=== PATIENT | female | born 1960 | race Caucasian/White ===

== ENCOUNTER 2017-04-07 10:27 | Day surgery (SDC) | payer OTHER ==
[2017-04-05 14:39] VITALS: BMI 34.9
[2017-04-07] MEDS ORDERED: PROPOFOL 20 ML ONE (11:24)
[2017-04-07 12:17] VITALS: TEMP 98.7
[2017-04-07 13:11] VITALS: BP 148/83; PULSE 59
== END 2017-04-07 13:11 | disposition home or self-care (01) ==
LOC: JASU-ENDO 10:27
PROVIDERS: ATTEND Internal Medicine Gastroenterology
PROC: 0DJ08ZZ Inspection of Upper Intestinal Tract, Via Natural or Artificial Opening Endoscopic (ICD-10-PCS; principal; 2017-04-07 11:00)
DX: D50.9 Iron deficiency anemia, unspecified (principal); K31.9 Disease of stomach and duodenum, unspecified; K44.9 Diaphragmatic hernia without obstruction or gangrene
CPT/HCPCS: 84703

== ENCOUNTER 2017-06-23 10:52 | Emergency (ER) | payer OTHER ==
[2017-06-23 11:00] VITALS: BP 158/101; PULSE 78; TEMP 98.9; BMI 32.3
--- NOTE | 2017-06-23 11:48 | PDOC ---
Attending Attestation - Resident Resident Name: Matt Suarez - ED Attending Attestation I have performed the following: I have examined & evaluated the patient, The case was reviewed & discussed with the resident, I agree w/resident's findings & plan, Exceptions are as noted - HPI HPI: 57 yo F PMH allergic reaction 2 years ago, HTN presents with rash. She states she has been evaluated by her cigar packer as well as an urgent care. She is currently on prednisone 30 mg, on a taper. She states she does not know of any new lotions, soaps, detergents. No recent med changes. She has been on Cozaar for her BP for years without any problems. She also notes that her upper lip is swollen on the left side. She has had recent throat irritation. - Physicial Exam PE: GENERAL: Awake, alert, and fully oriented, in no acute distress HEAD: No signs of trauma EYES: PERRLA, EOMI, sclera anicteric, conjunctiva clear ENT: Auricles normal inspection, hearing grossly normal, nares patent, oropharynx clear without exudates. Moist mucosa. +Slight edema of the upper lip , left side. No oral mucosal lesions. NECK: Normal ROM, supple, no lymphadenopathy, JVD, or masses LUNGS: Breath sounds equal, clear to auscultation bilaterally. No wheezes, and no crackles HEART: Regular rate and rhythm, normal S1 and S2, no murmurs, rubs or gallops ABDOMEN: Soft, nontender, normoactive bowel sounds. No guarding, no rebound. No masses EXTREMITIES: Normal range of motion, no edema. No clubbing or cyanosis. No cords , erythema, or tenderness NEUROLOGICAL: Cranial nerves II through XII grossly intact. Normal speech, normal gait SKIN: Warm, Dry, normal turgor. +Diffuse erythematous patches with excoriations , no edema. - Medical Decision Making Symptoms suspicious for urticaria vs angioedema. No oral mucosal lesions, making SJS unlikely (also patient is afebrile and well-appearing). Will treat with H2 nacho and additional steroids (she took prednisone 30 mg this morning) . Recommended benadryl at home, as her itching has not improved with xyzal and claritin. Will monitor in ED, [place] home with cigar packer f/u.
[2017-06-23] MEDS ORDERED: SODIUM CHLORIDE 1,000 ML IV STA (11:54)
[2017-06-23] MEDS ORDERED: FAMOTIDINE 20 MG/50 ML IVPB 50 ML IVPB ONE ×2 (11:54→12:04)
[2017-06-23] MEDS ORDERED: methylPREDNISolone NA SUCC 40 MG/1 ML VIAL ONE (12:05)
--- NOTE | 2017-06-23 12:18 | PDOC ---
History of Present Illness - General Chief Complaint: Allergic Reaction Stated Complaint: ALLERGIC REACTION, ITCHY RASH Time Seen by Provider: 06/23/17 11:05 History Source: Patient Exam Limitations: No Limitations - History of Present Illness Initial Comments: 06/23/17 11:37 The patient is a 57F with a PMH of HTN and hypothyroidism who presents to the ED with an allergic reaction. The patient states that 3-4 days ago she began itching at night and it has since progressed to hives. She saw her rotary furnace tender who thought it was secondary to a viral process that the patient had. She then went to an urgent care and they thought it was secondary to a food. She is currently prescribed claritin and 30mg of prednisone. The patient also endorses lip swelling and slight feeling in her throat. Past History - Past Medical History Allergies/Adverse Reactions: Allergies Allergy/AdvReac Type Severity Reaction Status Date / Time clarithromycin [From Biaxin] AdvReac severe Verified 06/23/17 10:54 abdominal pain erythromycin lactobionate AdvReac severe Verified 06/23/17 10:54 [From Erythrocin] abdominal pain diuretics AdvReac dizziness Uncoded 06/23/17 10:54 Home Medications: Ambulatory Orders Pantoprazole Sodium [Protonix] 40 mg PO HS #30 06/21/16 Desloratadine 5 mg PO DAILY 06/23/17 Levocetirizine Dihydrochloride 5 mg PO DAILY 06/23/17 Prednisone 10 mg PO TID 06/23/17 Prednisone [Deltasone -] 40 mg PO DAILY #10 tablet 06/23/17 Anemia: Yes (IRON DEFICIENCY ANEMIA) Asthma: No Cancer: No Cardiac Disorders: Yes (MVP) CVA: No COPD: No CHF: No Dementia: No Diabetes: No GI Disorders: Yes (GERD,IBS,COLON POLYPS,STOMACH ULCERS) Disorders: No HTN: Yes Hypercholesterolemia: No Liver Disease: No Seizures: No Thyroid Disease: Yes - Surgical History Abdominal Surgery: No Appendectomy: No Cardiac Surgery: No Cholecystectomy: No Lung Surgery: No Neurologic Surgery: No Orthopedic Surgery: No - Suicide/Smoking/Psychosocial Hx Smoking History: Never smoked Have you smoked in the past 12 months: No Number of Cigarettes Smoked Daily: 0 Hx Alcohol Use: No Drug/Substance Use Hx: No Substance Use Type: None Hx Substance Use Treatment: No Review of Systems - Review of Systems Able to Perform ROS?: Yes Is the patient limited German proficient: No Constitutional: No: Chills, Fever HEENTM: Yes: Mouth Swelling. No: Eye Pain, Throat Swelling Respiratory: No: Cough, Shortness of Breath Cardiac (ROS): No: Chest Pain, Palpitations ABD/GI: No: Nausea, Vomiting : No: Burning, Dysuria, Discharge Musculoskeletal: No: Back Pain, Muscle Weakness Integumentary: Yes: Other (Lip swelling). No: Sweating Neurological: No: Numbness, Tingling, Weakness *Physical Exam - Vital Signs Last Vital Signs Temp Pulse Resp BP Pulse Ox 98.9 F 78 18 158/101 97 06/23/17 10:52 06/23/17 10:52 06/23/17 10:52 06/23/17 10:52 06/23/17 10:52 - Physical Exam General Appearance: Yes: Nourished, Appropriately Dressed HEENT: positive: Normal Voice, Hearing Grossly Normal, Other (Mild L sided upper lip swelling). negative: Tonsillar Exudate, Tonsillar Erythema Respiratory/Chest: positive: Lungs Clear, Normal Breath Sounds. negative: Chest Tender, Respiratory Distress, Accessory Muscle Use, Labored Respiration, Stridor, Wheezing Cardiovascular: positive: Regular Rhythm, Regular Rate, S1, S2. negative: Diastolic Murmur, Systolic Murmur Gastrointestinal/Abdominal: positive: Flat, Soft. negative: Tender Musculoskeletal: negative: CVA Tenderness, CVA Tenderness (R), CVA Tenderness (L ) Extremity: positive: Normal Inspection, Normal Range of Motion. negative: Swelling, Calf Tenderness Integumentary: positive: Dry, Warm, Hives (on face, b/l thighs and chest) Neurologic: positive: Fully Oriented, Alert, Normal Mood/Affect Medical Decision Making - Medical Decision Making 06/23/17 13:25 The patient is a 57F who presents with an allergic reaction x 3 days. The patient states she had a similar presentation a few years ago. She has been given benadryl, pepcid, and steroids and states she is feeling better. She is aware that she needs to follow up with her rotary furnace tender in 2-3 days. Patient is ready for discharge. Patient's lips had decreased swelling from previous exam. *DC/Admit/Observation/Transfer Diagnosis at time of Disposition: Allergic reaction Qualifiers: Encounter type: initial encounter Qualified Code(s): T78.40XA - Allergy, unspecified, initial encounter - Discharge Dispostion Disposition: HOME Condition at time of disposition: Stable Admit: No - Prescriptions Prescriptions: Prednisone [Deltasone -] 40 mg PO DAILY #10 tablet - Referrals Referrals: Patrick Connolly MD [Primary Care Provider] - - Patient Instructions Printed Discharge Instructions: DI for Adverse Drug Reaction -- Allergic Additional Instructions: Please return to the ER if symptoms persist, worsen, or new symptoms arise. Please follow up with your allergy doctor within 2-3 days. Please return to the ER if you have lip, tongue, eye, or throat swelling or if you feel any difficulty breathing. Print Language: MACEDONIAN
[2017-06-24] MEDS ORDERED: methylPREDNISolone NA SUCC 125 MG/2 ML VIAL IVPB ONE (11:56)
== END 2017-06-23 13:50 | disposition home or self-care (01) ==
LOC: FER 10:52
PROC: 3E033GC Introduction of Other Therapeutic Substance into Peripheral Vein, Percutaneous Approach (ICD-10-PCS; principal; 2017-06-23)
PROC: 3E0337Z Introduction of Electrolytic and Water Balance Substance into Peripheral Vein, Percutaneous Approach (ICD-10-PCS; 2017-06-23)
DX: T78.40XA Allergy, unspecified, initial encounter (principal); I10 Essential (primary) hypertension; E07.9 Disorder of thyroid, unspecified; K21.9 Gastro-esophageal reflux disease without esophagitis; I34.1 Nonrheumatic mitral (valve) prolapse
CPT/HCPCS: 99283-25

== ENCOUNTER 2019-06-05 23:46 | Emergency (ER) | payer SELFPAY ==
[2019-06-05 23:57] VITALS: BP 144/81; PULSE 80; TEMP 98.8; BMI 25.8
[2019-06-06] MEDS ORDERED: predniSONE 20 MG TABLET (UD) PO ONE (00:07)
[2019-06-06] MEDS ORDERED: predniSONE 20 MG TABLET (UD) ONE (00:09)
--- NOTE | 2019-06-06 00:10 | PDOC ---
History of Present Illness - General Chief Complaint: Allergic Reaction Stated Complaint: ALLERGIC REACTION Time Seen by Provider: 06/06/19 00:05 History Source: Patient Exam Limitations: No Limitations - History of Present Illness Initial Comments: 06/06/19 00:07 This is a 89-year-old female who comes in complaining of an ALLERGIC reaction. Patient is complaining of itching and swelling of her hands or feet and her face. Patient had similar reaction recently and stopped taking the prednisone for yesterday. An patient that her symptoms return. Patient denies any shortness of breath, nausea, vomiting or diarrhea. Patient denies any fevers or chills Allergies: as per nursing notes Past Medical History: none Social history: Lives with family. No smoking. No alcohol. No illicit drugs. Surgical history: None General: No fevers or chills, no weakness, no weight loss HEENT: No change in vision. No sore throat,. No ear pain CardioVascular: no chest discomfort. No shortness of breath Respiratory:No cough, or wheezing. Gastrointestinal: no nausea, vomiting, diarrhea or constipation, No rectal bleeding Genitourinary: No dysuria, hematuria, or frequency Musculoskeletal: No joint or muscle pain or swelling Neurologic: No headache, vertigo, dizziness or loss of consciousness Psychiatric: nor depression Skin: Itching as per history of present illness Endocrine: no increased thirst or abnormal weight change Allergic: no skin or latex allergy All other systems reviewed and normal Exam: General: Well-nourished well-developed individual, no acute distress HEENT: Throat: Normal, tonsils normal, no erythema or exudate Neck: Supple, no meningeal signs, no lymphadenopathy Eyes::Pupils equal reactive and round, extraocular motion intact Chest: Nontender to palpation Cardiac: S1-S2 normal, regular rate and rhythm, no murmurs rubs or gallops Respiratory: Lungs clear to auscultation bilateral Abdomen: Soft, nondistended, normal bowel sounds, there is no tenderness on palpation diffusely Extremities: Warm, dry, no cyanosis, clubbing, or edema Skin: No rashes Neuro: Alert and oriented x3, CN II - XII intact, nonfocal exam with normal strength, normal sensation, normal reflexes, normal gait, Psych: Normal mood and affect Past History - Past Medical History Allergies/Adverse Reactions: Allergies Allergy/AdvReac Type Severity Reaction Status Date / Time clarithromycin [From Biaxin] AdvReac severe Verified 06/23/17 10:54 abdominal pain erythromycin lactobionate AdvReac severe Verified 06/23/17 10:54 [From Erythrocin] abdominal pain diuretics AdvReac dizziness Uncoded 06/23/17 10:54 Home Medications: Ambulatory Orders Pantoprazole Sodium [Protonix] 40 mg PO HS #30 06/21/16 Anemia: Yes (IRON DEFICIENCY ANEMIA) Asthma: No Cancer: No Cardiac Disorders: Yes (MVP) CVA: No COPD: No CHF: No Dementia: No Diabetes: No GI Disorders: Yes (GERD,IBS,COLON POLYPS,STOMACH ULCERS) Disorders: No HTN: Yes Hypercholesterolemia: No Liver Disease: No Seizures: No Thyroid Disease: Yes - Surgical History Abdominal Surgery: No Appendectomy: No Cardiac Surgery: No Cholecystectomy: No Lung Surgery: No Neurologic Surgery: No Orthopedic Surgery: No - Psycho Social/Smoking Cessation Hx Smoking History: Unknown if ever smoked Have you smoked in the past 12 months: No Number of Cigarettes Smoked Daily: 0 Information on smoking cessation initiated: No Hx Alcohol Use: No Drug/Substance Use Hx: No Substance Use Type: None Hx Substance Use Treatment: No *Physical Exam - Vital Signs Last Vital Signs Temp Pulse Resp BP Pulse Ox 98.8 F 80 14 144/81 95 06/05/19 23:54 06/05/19 23:54 06/05/19 23:54 06/05/19 23:54 06/05/19 23:54 Discharge - Discharge Information Problems reviewed: Yes Clinical Impression/Diagnosis: Allergic reaction Condition: Good Disposition: HOME - Follow up/Referral Referrals: Dom Mane MD [Primary Care Provider] - - Patient Discharge Instructions Additional Instructions: Take the Medrol Dosepak and taper as per the pack Return to the emergency department immediately with ANY new, persistent or worsening symptoms. Continue any medications as previously prescribed by your physician. You should follow up with your primary doctor as soon as possible regarding today's emergency department visit. . Please make sure your doctor reviews the results of your emergency evaluation. Thank you for coming to the Emergency Department today for your care. It was a pleasure to see you today. Please note that your evaluation is INCOMPLETE until you follow-up with your doctor. - Post Discharge Activity
== END 2019-06-06 02:44 | disposition home or self-care (01) ==
LOC: FER 23:46
DX: T78.40XA Allergy, unspecified, initial encounter (principal); I10 Essential (primary) hypertension; I34.1 Nonrheumatic mitral (valve) prolapse; K21.9 Gastro-esophageal reflux disease without esophagitis; K58.9 Irritable bowel syndrome, unspecified; E07.9 Disorder of thyroid, unspecified; Z88.8 Allergy status to other drugs, medicaments and biological substances
CPT/HCPCS: 99283-25

== ENCOUNTER 2022-04-06 14:09 | Emergency (ER) | payer BC ==
[2022-04-06 14:33] VITALS: BP 126/47; PULSE 66; RESP 16; TEMP 98.8; BMI 32.3
[2022-04-06] MEDS ORDERED: DIPHTH,PERTUSS(ACELL),TET 0.5 ML DISP.SYRIN IM ONE ×2 (16:07→16:18)
== END 2022-04-06 16:30 | disposition home or self-care (01) ==
LOC: FER 14:09
PROC: 3E0234Z Introduction of Serum, Toxoid and Vaccine into Muscle, Percutaneous Approach (ICD-10-PCS; principal; 2022-04-06)
DX: R68.84 Jaw pain (principal); M25.532 Pain in left wrist; M25.562 Pain in left knee; W19.XXXA Unspecified fall, initial encounter
CPT/HCPCS: 70486-TC; 73110-TC-LT-FY; 73130-TC-LT-FY; 73562-TC-LT-FY; 90715; 99284-25